=== PATIENT | male | born 1935 | race Caucasian/White ===

== ENCOUNTER 2019-02-13 08:18 | Day surgery (SDC) ==
[2019-02-13] MEDS: TETRACAINE 0.5% UNIT-DOSE OP PRN ×2 (08:30→10:25)
[2019-02-13] MEDS: BETADINE OPTH PREP OP PRN ×2 (08:30→10:25)
[2019-02-13] MEDS: CYCLOGYL 2% OPTH OP PRN ×3 (08:31→08:41)
[2019-02-13] MEDS ORDERED: ZOFRAN 4 MG/2 ML IVP ONE (08:58)
[2019-02-13] MEDS ORDERED: LIDOCAINE 1% 20 ML MDV ID STA (08:58)
[2019-02-13 09:03] VITALS: TEMP 97.6
[2019-02-13] MEDS ORDERED: SUBLIMAZE ONE (10:28)
[2019-02-13] MEDS ORDERED: VERSED ONE (10:28)
[2019-02-13] MEDS ORDERED: ZOFRAN 4 MG/2 ML ONE (10:28)
[2019-02-13] MEDS: DEX-MOXI-KETOR OPTH INJ 1/0.5/0.4 MG/ML IO ONE ×2 (10:32→10:38)
[2019-02-13] MEDS: BSS WITH EPINEPHRINE OP ONE ×2 (10:32→10:38)
[2019-02-13] MEDS: LIDOCAINE 1%/PHENYLEPHRINE 1.5% BSS (SURGERY) INTRAOCULA ONE ×2 (10:32→10:38)
[2019-02-19 13:58] VITALS: BP 136/69
== END 2019-02-13 11:25 | disposition home or self-care (01) ==
LOC: SURG 08:18
PROVIDERS: ATTEND Ophthalmology
DX: H25.812 Combined forms of age-related cataract, left eye (principal)

== ENCOUNTER 2019-02-26 08:39 | Day surgery (SDC) ==
[2019-02-26] MEDS: TETRACAINE 0.5% UNIT-DOSE OP PRN ×3 (08:51→09:50)
[2019-02-26] MEDS: BETADINE OPTH PREP OP PRN ×2 (08:51→09:45)
[2019-02-26] MEDS: CYCLOGYL 2% OPTH OP PRN ×3 (08:52→09:02)
[2019-02-26] MEDS ORDERED: LIDOCAINE 1%/PHENYLEPHRINE 1.5% BSS (SURGERY) INTRAOCULA ONE (09:00)
[2019-02-26] MEDS ORDERED: DEX-MOXI-KETOR OPTH INJ 1/0.5/0.4 MG/ML IO ONE (09:00)
[2019-02-26] MEDS ORDERED: BSS WITH EPINEPHRINE OP ONE (09:00)
[2019-02-26] MEDS ORDERED: LIDOCAINE 1% 20 ML MDV ID STA (09:00)
[2019-02-26] MEDS ORDERED: ZOFRAN 4 MG/2 ML IVP ONE (09:00)
[2019-02-26 09:07] VITALS: BP 149/86; TEMP 98.2
[2019-02-26] MEDS ORDERED: SUBLIMAZE ONE (09:50)
[2019-02-26] MEDS ORDERED: ZOFRAN 4 MG/2 ML ONE (09:50)
[2019-02-26] MEDS ORDERED: VERSED ONE (09:50)
== END 2019-02-26 10:30 | disposition home or self-care (01) ==
LOC: SURG 08:39
PROVIDERS: ATTEND Ophthalmology
DX: H25.811 Combined forms of age-related cataract, right eye (principal)